=== PATIENT | male | born 1985 | race Caucasian/White ===

== ENCOUNTER 2021-04-20 13:33 | Emergency (ER) | payer OTHER ==
[~2021-04-20] VITALS: Ht 177.8 cm; Wt 72.6 kg
[2021-04-20 13:40] VITALS: BP 142/84
--- NOTE | 2021-04-20 13:40 | NUR ---
PATIENT AMBULATED TO BED 7
--- NOTE | 2021-04-20 13:46 | NUR ---
35 Y/O MALE BIB MOTHER C/O HEADACHE 8/10 DESCRIBES POUNDING NON-RADIATING, RIGHT ANKLE PAIN 4/10 DESCRIBES ACHING NON-RADIATING X5DAYS. PT STATES HE FELL WHILE RIDING SKATEBOARD X5DAYS, HIT HEAD WITH +LOC UNKNOWN AMOUNT OF TIME. PT STATES HE REMEMBERS WAKING UP ON THE STREET, STATES +N/+V 1 TIME UPON WAKING UP S/P FALL. PT DENIES N/V AT THIS TIME, DENIES FEVER/CHILLS. DENIES PMH NKA
--- NOTE | 2021-04-20 13:47 | NUR ---
PATIENT TAKEN TO CT VIA [facility]
--- NOTE | 2021-04-20 13:56 | NUR ---
Pt brought back via gurney to ER bed 7.
[2021-04-20 15:20] VITALS: BP 142/84
--- NOTE | 2021-04-20 15:21 | NUR ---
Patient discharged with v/s stable. Written and verbal after care instructions given and explained. Patient verbalized understanding. Ambulatory with steady gait. All questions addressed prior to discharge. Advised to follow up with PMD.
== END 2021-04-20 15:19 | disposition home or self-care (01) ==
LOC: MED 13:33
DX: S09.90XA Unspecified injury of head, initial encounter (principal); F07.81 Postconcussional syndrome; M25.571 Pain in right ankle and joints of right foot; Z48.1 Encounter for planned postprocedural wound closure; V00.131A Fall from skateboard, initial encounter; Y93.89 Activity, other specified; Y92.89 Other specified places as the place of occurrence of the external cause; Y99.8 Other external cause status
CPT/HCPCS: 70450; 73610; 99284